=== PATIENT | male | born 1980 | race Caucasian/White ===

== ENCOUNTER 2020-07-15 11:06 | Inpatient (IN) | payer OTHER ==
[2020-07-15 15:02] VITALS: BMI 27.8
[2020-07-15] MEDS ORDERED: BISMUTH SUBSALICYLATE 524 MG/30 ML UD PO PRN (15:59)
[2020-07-15] MEDS ORDERED: IBUPROFEN 400 MG TABLET (FP) PO PRN (15:59)
[2020-07-15] MEDS ORDERED: MAGNESIUM CITRATE 300 ML BOTTLE PO PRN (15:59)
[2020-07-15] MEDS ORDERED: NICOTINE POLACRILEX 2 MG GUM BUC PRN (15:59)
[2020-07-15] MEDS ORDERED: MENTHOL/PHENOL 1 EACH UD MM PRN (15:59)
[2020-07-15] MEDS ORDERED: ACETAMINOPHEN 325 MG TABLET (FP) PO PRN ×2 (15:59)
[2020-07-15] MEDS ORDERED: MAGNESIUM HYDROX 2400MG/30ML ORAL SUSPENSION 30 ML CUP PO PRN (15:59)
[2020-07-15] MEDS ORDERED: METHOCARBAMOL 500 MG TABLET PO PRN (15:59)
[2020-07-15] MEDS ORDERED: MAG HYDROX/AL HYDROX/SIMETH 30 ML UNIT-DOSE CUP PO PRN (15:59)
[2020-07-15] MEDS ORDERED: hydrOXYzine PAMOATE 25 MG CAPSULE (FP) PO ONE ×2 (17:00→17:07)
[2020-07-15] MEDS ORDERED: METHADONE 120 MG, METHADONE 30 MG, METHADONE 5 MG PO ONE (19:00)
[2020-07-15] MEDS ORDERED: LORazepam 1 MG TABLET ONE (19:05)
[2020-07-15] MEDS: LORazepam 1 MG TABLET PO PRN (19:07)
[2020-07-15] MEDS: LORazepam 2 MG TABLET PO SCH (22:29)
[2020-07-15] MEDS: THIAMINE HCL 100 MG TABLET (FP) PO SCH (22:30)
[2020-07-15] MEDS: MELATONIN 5 MG TABLETS PO SCH (22:30)
[2020-07-16] MEDS ORDERED: METHADONE HCL 10 MG TABLET ONE (05:16)
[2020-07-16] MEDS ORDERED: METHADONE HCL 5 MG TABLET ONE (05:17)
[2020-07-16] MEDS ORDERED: METHADONE HCL 40 MG DISPERSABLE TABLET ONE (05:17)
[2020-07-16] MEDS: LORazepam 2 MG TABLET PO SCH ×4 (05:51→22:09)
[2020-07-16] MEDS ORDERED: METHADONE HCL 10 MG TABLET PO ONE ×2 (06:00)
[2020-07-16] MEDS ORDERED: METHADONE 120 MG, METHADONE 30 MG, METHADONE 5 MG PO ONE (06:00)
[2020-07-16] MEDS: PRENATAL VITAMINS W/ FOLIC ACID TABLET (FP) PO SCH (10:14)
[2020-07-16] MEDS: SERTRALINE HCL 25 MG TABLET (FP) PO SCH (10:14)
[2020-07-16] MEDS: NICOTINE 7 MG/24 HOURS TOPICAL PATCH TD SCH (10:14)
[2020-07-16 10:40] LABS: HEMATOCRIT 37.2 % (35.4-49); HEMOGLOBIN 12.8 GM/dL (11.7-16.9); MCH 30.8 pg (25.7-33.7); MCHC 34.5 g/dl (32.0-35.9); MEAN CELL VOLUME 89.1 fl (80-96); MEAN PLT VOLUME 9.5 fl (7.5-11.1); PLATELET COUNT 215 K/MM3 (134-434); RBC 4.18 M/mm3 (4.00-5.60); RDW 13.3 % (11.9-15.9); WHITE BLOOD COUNT 8.9 K/mm3 (4.0-10.0)
[2020-07-16 10:46] LABS: ALBUMIN 3.4 g/dl (3.4-5.0); BLOOD UREA NITROGEN 15.9 mg/dL (7-18); CALCIUM 8.9 mg/dL (8.5-10.1)
[2020-07-16 10:50] LABS: CREATININE 1.1 mg/dL (0.55-1.3)
[2020-07-16 10:51] LABS: BILIRUBIN,TOTAL 0.3 mg/dL (0.2-1); TOT PROT 6.6 g/dl (6.4-8.2)
[2020-07-16] MEDS ORDERED: DICYCLOMINE HCL 20 MG TABLET PO ONE (13:00)
[2020-07-16] MEDS ORDERED: METHOCARBAMOL 500 MG TABLET PO ONE (13:00)
[2020-07-16] MEDS ORDERED: METHOCARBAMOL 750 MG TAB PO ONE (13:00)
[2020-07-16] MEDS ORDERED: DICYCLOMINE HCL 10 MG CAPSULE PO ONE (13:00)
[2020-07-16] MEDS: LORazepam 1 MG TABLET PO PRN (13:25)
[2020-07-16] MEDS: GABAPENTIN 300 MG CAPSULE PO SCH ×2 (13:25→22:09)
[2020-07-16] MEDS ORDERED: MIRTAZAPINE 30 MG TABLET PO SCH (22:00)
[2020-07-16] MEDS: THIAMINE HCL 100 MG TABLET (FP) PO SCH (22:08)
[2020-07-16] MEDS: MELATONIN 5 MG TABLETS PO SCH (22:09)
[2020-07-17] MEDS ORDERED: LORazepam 1 MG TABLET PO SCH (05:00)
[2020-07-17] MEDS: GABAPENTIN 300 MG CAPSULE PO SCH (05:22)
[2020-07-17] MEDS ORDERED: METHADONE HCL 10 MG TABLET ONE (08:43)
[2020-07-17] MEDS ORDERED: METHADONE HCL 40 MG DISPERSABLE TABLET ONE (08:44)
[2020-07-17] MEDS ORDERED: METHADONE HCL 5 MG TABLET ONE (08:44)
[2020-07-17] MEDS ORDERED: METHADONE 120 MG, METHADONE 30 MG, METHADONE 5 MG PO ONE (08:45)
[2020-07-17] MEDS ORDERED: METHADONE HCL 40 MG DISPERSABLE TABLET PO SCH (08:45)
[2020-07-17 09:18] VITALS: BP 130/85; PULSE 96; TEMP 97.7
[2020-07-17] MEDS: SERTRALINE HCL 25 MG TABLET (FP) PO SCH (09:35)
[2020-07-17] MEDS: NICOTINE 7 MG/24 HOURS TOPICAL PATCH TD SCH (09:35)
[2020-07-17] MEDS: PRENATAL VITAMINS W/ FOLIC ACID TABLET (FP) PO SCH (09:35)
[2020-07-18] MEDS ORDERED: LORazepam 0.5 MG TABLET PO PRN
[2020-07-18] MEDS ORDERED: LORazepam 0.5 MG TABLET PO SCH (05:00)
[2020-07-18] MEDS ORDERED: METHADONE 120 MG, METHADONE 30 MG, METHADONE 5 MG PO SCH (06:00)
[2020-07-19] MEDS ORDERED: LORazepam 0.5 MG TABLET PO ONE (05:00)
== END 2020-07-17 09:30 | disposition left against medical advice (07) | DRG 770 ==
LOC: YASAS 11:06 → Y6N 19:25
PROVIDERS: ADMIT Allergy & Immunology; ATTEND Allergy & Immunology
PROC: HZ2ZZZZ Detoxification Services for Substance Abuse Treatment (ICD-10-PCS; principal; 2020-07-15)
DX: F10.230 Alcohol dependence with withdrawal, uncomplicated (principal); F11.20 Opioid dependence, uncomplicated; F13.20 Sedative, hypnotic or anxiolytic dependence, uncomplicated; F17.210 Nicotine dependence, cigarettes, uncomplicated; F19.280 Other psychoactive substance dependence with psychoactive substance-induced anxiety disorder; F19.282 Other psychoactive substance dependence with psychoactive substance-induced sleep disorder; F33.1 Major depressive disorder, recurrent, moderate; Z87.81 Personal history of (healed) traumatic fracture; Z88.0 Allergy status to penicillin; Z88.5 Allergy status to narcotic agent
CPT/HCPCS: 36415; 80053; 82962; 85027; 86780; 93005; 93010; C9803; U0003; U0005

== ENCOUNTER 2020-09-23 13:48 | Inpatient (IN) | payer OTHER ==
[2020-09-23] MEDS ORDERED: MAGNESIUM CITRATE 300 ML BOTTLE PO PRN (17:27)
[2020-09-23] MEDS ORDERED: METHOCARBAMOL 500 MG TABLET PO PRN (17:27)
[2020-09-23] MEDS ORDERED: MAGNESIUM HYDROX 2400MG/30ML ORAL SUSPENSION 30 ML CUP PO PRN (17:27)
[2020-09-23] MEDS ORDERED: NICOTINE POLACRILEX 2 MG GUM BUC PRN (17:27)
[2020-09-23] MEDS ORDERED: BISMUTH SUBSALICYLATE 524 MG/30 ML PO PRN (17:27)
[2020-09-23] MEDS ORDERED: MAG HYDROX/AL HYDROX/SIMETH 30 ML UNIT-DOSE CUP PO PRN (17:27)
[2020-09-23] MEDS ORDERED: ACETAMINOPHEN 325 MG TABLET (FP) PO PRN ×2 (17:27)
[2020-09-23] MEDS ORDERED: MENTHOL/PHENOL 1 EACH UD MM PRN (17:27)
[2020-09-23] MEDS ORDERED: ONDANSETRON *ODT* 4 MG TABLET SL PRN (17:27)
[2020-09-23] MEDS ORDERED: CEPHALEXIN MONOHYDRATE 500 MG CAPSULE (UD) PO SCH (18:00)
[2020-09-23] MEDS: THIAMINE HCL 100 MG TABLET (FP) PO SCH (20:00)
[2020-09-23] MEDS: diazePAM 5 MG TABLET PO SCH (20:00)
[2020-09-23] MEDS: MELATONIN 5 MG TABLETS PO SCH (20:00)
[2020-09-23 20:26] VITALS: BMI 27.0
[2020-09-23] MEDS ORDERED: diazePAM 5 MG TABLET ONE (21:02)
[2020-09-23] MEDS ORDERED: IBUPROFEN 400 MG TABLET (FP) PO ONE (21:02)
[2020-09-23] MEDS: hydrOXYzine PAMOATE 25 MG CAPSULE (FP) PO PRN (21:03)
[2020-09-23] MEDS: IBUPROFEN 400 MG TABLET (FP) PO PRN (21:05)
[2020-09-24] MEDS ORDERED: diazePAM 5 MG TABLET ONE ×2 (05:22→09:44)
[2020-09-24] MEDS: diazePAM 5 MG TABLET PO SCH ×4 (05:24→22:16)
[2020-09-24] MEDS ORDERED: methaDONE HCL 10 MG TABLET PO SCH (07:15)
[2020-09-24] MEDS ORDERED: methaDONE HCL 10 MG TABLET ONE (08:17)
[2020-09-24] MEDS ORDERED: methaDONE HCL 40 MG DISPERSABLE TABLET ONE (08:18)
[2020-09-24] MEDS ORDERED: NICOTINE 7 MG/24 HOURS TOPICAL PATCH TD ONE (09:45)
[2020-09-24] MEDS: NICOTINE 7 MG/24 HOURS TOPICAL PATCH TD SCH (09:55)
[2020-09-24 11:10] LABS: HEMATOCRIT 38.2 % (35.4-49); HEMOGLOBIN 12.6 GM/dL (11.7-16.9); MCH 29.5 pg (25.7-33.7); MCHC 32.9 g/dl (32.0-35.9); MEAN CELL VOLUME 89.7 fl (80-96); PLATELET COUNT 201 10^3/uL (134-434); RBC 4.26 M/mm3 (4.00-5.60); WHITE BLOOD COUNT 4.7 K/mm3 (4.0-10.0)
[2020-09-24 11:17] LABS: CALCIUM 8.8 mg/dL (8.5-10.1)
[2020-09-24 11:18] LABS: ALBUMIN 3.2 g/dl (3.4-5.0); BLOOD UREA NITROGEN 9.7 mg/dL (7-18)
[2020-09-24 11:21] LABS: CREATININE 0.7 mg/dL (0.55-1.3)
[2020-09-24 11:23] LABS: BILIRUBIN,TOTAL 0.6 mg/dL (0.2-1); TOT PROT 6.3 g/dl (6.4-8.2)
[2020-09-24] MEDS: PRENATAL VITAMINS W/ FOLIC ACID TABLET (FP) PO SCH (12:06)
[2020-09-24] MEDS: SERTRALINE HCL 50 MG TABLET (FP) PO SCH (13:05)
[2020-09-24] MEDS: GABAPENTIN 300 MG CAPSULE PO SCH ×2 (13:05→22:16)
[2020-09-24] MEDS: DOXYCYCLINE HYCLATE 100 MG CAPSULE PO SCH ×2 (16:07→22:16)
[2020-09-24] MEDS: hydrOXYzine PAMOATE 25 MG CAPSULE (FP) PO PRN (17:53)
[2020-09-24] MEDS: MELATONIN 5 MG TABLETS PO SCH (22:16)
[2020-09-24] MEDS: MIRTAZAPINE 15 MG TABLET (FP) PO SCH (22:16)
[2020-09-24] MEDS: THIAMINE HCL 100 MG TABLET (FP) PO SCH (22:16)
[2020-09-25] MEDS ORDERED: methaDONE HCL 10 MG TABLET ONE (04:30)
[2020-09-25] MEDS ORDERED: methaDONE HCL 40 MG DISPERSABLE TABLET ONE (04:31)
[2020-09-25] MEDS: GABAPENTIN 300 MG CAPSULE PO SCH ×3 (05:33→22:31)
[2020-09-25] MEDS: diazePAM 5 MG TABLET PO SCH ×3 (05:34→22:31)
[2020-09-25] MEDS: PRENATAL VITAMINS W/ FOLIC ACID TABLET (FP) PO SCH (10:09)
[2020-09-25] MEDS: NICOTINE 7 MG/24 HOURS TOPICAL PATCH TD SCH (10:09)
[2020-09-25] MEDS: SERTRALINE HCL 50 MG TABLET (FP) PO SCH (10:10)
[2020-09-25] MEDS: DOXYCYCLINE HYCLATE 100 MG CAPSULE PO SCH ×2 (10:10→18:02)
[2020-09-25] MEDS: diazePAM 5 MG TABLET PO PRN (10:11)
[2020-09-25] MEDS: IBUPROFEN 400 MG TABLET (FP) PO PRN (20:22)
[2020-09-25] MEDS: MIRTAZAPINE 15 MG TABLET (FP) PO SCH (22:31)
[2020-09-25] MEDS: MELATONIN 5 MG TABLETS PO SCH (22:31)
[2020-09-25] MEDS: THIAMINE HCL 100 MG TABLET (FP) PO SCH (22:31)
[2020-09-26] MEDS ORDERED: methaDONE HCL 10 MG TABLET ONE (04:23)
[2020-09-26] MEDS ORDERED: methaDONE HCL 40 MG DISPERSABLE TABLET ONE (04:24)
[2020-09-26] MEDS: GABAPENTIN 300 MG CAPSULE PO SCH ×3 (05:29→22:08)
[2020-09-26] MEDS: diazePAM 5 MG TABLET PO SCH ×2 (05:32→17:15)
[2020-09-26] MEDS: hydrOXYzine PAMOATE 25 MG CAPSULE (FP) PO PRN (10:07)
[2020-09-26] MEDS: SERTRALINE HCL 50 MG TABLET (FP) PO SCH (10:07)
[2020-09-26] MEDS: DOXYCYCLINE HYCLATE 100 MG CAPSULE PO SCH ×2 (10:07→17:16)
[2020-09-26] MEDS: PRENATAL VITAMINS W/ FOLIC ACID TABLET (FP) PO SCH (10:07)
[2020-09-26] MEDS: diazePAM 5 MG TABLET PO PRN (10:08)
[2020-09-26] MEDS: NICOTINE 7 MG/24 HOURS TOPICAL PATCH TD SCH (10:10)
[2020-09-26] MEDS ORDERED: cloNIDine HCL 0.1 MG TABLET PO PRN (10:12)
[2020-09-26] MEDS: MELATONIN 5 MG TABLETS PO SCH (22:07)
[2020-09-26] MEDS: MIRTAZAPINE 15 MG TABLET (FP) PO SCH (22:08)
[2020-09-26] MEDS: THIAMINE HCL 100 MG TABLET (FP) PO SCH (22:08)
[2020-09-27] MEDS ORDERED: methaDONE HCL 10 MG TABLET ONE (04:55)
[2020-09-27] MEDS ORDERED: methaDONE HCL 40 MG DISPERSABLE TABLET ONE (04:56)
[2020-09-27] MEDS: GABAPENTIN 300 MG CAPSULE PO SCH (05:26)
[2020-09-27] MEDS ORDERED: diazePAM 5 MG TABLET PO ONE (06:00)
[2020-09-27 06:19] VITALS: BP 132/88; PULSE 81; TEMP 96.9
== END 2020-09-27 06:48 | disposition home or self-care (01) | DRG 773 ==
LOC: YASAS 13:48 → Y3N 09-24 10:48
PROVIDERS: ADMIT Allergy & Immunology; ATTEND Allergy & Immunology
PROC: HZ2ZZZZ Detoxification Services for Substance Abuse Treatment (ICD-10-PCS; principal; 2020-09-24)
DX: F13.230 Sedative, hypnotic or anxiolytic dependence with withdrawal, uncomplicated (principal); F11.20 Opioid dependence, uncomplicated; F14.10 Cocaine abuse, uncomplicated; F12.10 Cannabis abuse, uncomplicated; F17.210 Nicotine dependence, cigarettes, uncomplicated; L08.9 Local infection of the skin and subcutaneous tissue, unspecified; Z88.0 Allergy status to penicillin; Z88.5 Allergy status to narcotic agent
CPT/HCPCS: 36415; 80053; 85027; 86780; C9803; J0735; U0003; U0005